=== PATIENT | female | born 1980 | race Caucasian/White ===

== ENCOUNTER 2022-04-22 06:31 | Emergency (ER) | payer OTHER ==
[2022-04-22 07:30] LABS: BASOPHIL 0.3 % (0-2); EOSINOPHIL 0.1 % (0-5); HCT 39.4 % (37.0-47.0); HGB 12.2 g/dl (12.5-16.0); LYMPHOCYTE 4.1 % (15-48); MCH 27.5 pg (25.0-31.0); MCV 88.7 fL (78.0-100.0); MONOCYTE 3.1 % (0-12); MPV 9.7 fL (6.0-9.5); NEUTROPHIL 91.5 % (41-80); NRBC 0.1; PLT 325 K/uL (150-400); RBC 4.44 M/uL (4.20-5.40); RDW 15.1 % (11.5-14.0)
[2022-04-22 07:57] LABS: LACTIC ACID 2.2 mmol/L (0.4-1.9)
[2022-04-22 09:23] LABS: BILIRUBIN NEGATIVE (NEGATIVE); BLOOD 3+ Ery/uL (NEGATIVE); CLARITY CLEAR (CLEAR); COLOR YELLOW (YELLOW); GLUCOSE (U) 3+ mg/dL (NORMAL); LEUKOCYTES NEGATIVE Leu/uL (NEGATIVE); NITRITE NEGATIVE (NEGATIVE); PROTEIN 1+ mg/dL (NEGATIVE); UROBILINOGEN 0.2 mg/dL (0.2-1.0); pH 5.5 (5.0-9.0)
[2022-04-22 09:29] LABS: AMPHETAMINES NEGATIVE (NEGATIVE); BARBITURATES NEGATIVE (NEGATIVE); ECSTASY (MDMA) NEGATIVE (NEGATIVE); MARIJUANA (THC) NEGATIVE (NEGATIVE); METHADONE NEGATIVE (NEGATIVE); OPIATES POSITIVE (NEGATIVE); OXYCODONE NEGATIVE (NEGATIVE)
[2022-04-22 09:46] LABS: CREATININE 1.09 mg/dL (0.51-0.95); POTASSIUM 5.4 mmol/L (3.5-5.1)
[2022-04-22 09:47] LABS: ALBUMIN 3.1 g/dL (3.4-5.0); BILIRUBIN - TOTAL 0.5 mg/dL (0.2-1.0); GLOBULIN (CALCULATION) 2.9 g/dL
[2022-04-22 09:48] LABS: MAGNESIUM 1.9 mg/dL (1.8-2.4)
[2022-04-22 09:51] LABS: ACETAMINOPHEN (TYLENOL) 5.6 ug/mL (10.0-30.0)
[2022-04-22 11:08] LABS: CORONAVIRUS 2019 SARS-COV-2 NEGATIVE (NEGATIVE); INFLUENZA A NAA NEGATIVE (NEGATIVE)
[2022-04-22 11:37] LABS: BUN/CREAT RATIO (CALC) 60.8 RATIO; CREATININE 0.79 mg/dL (0.51-0.95); POTASSIUM 3.9 mmol/L (3.5-5.1)
[2022-04-22 14:33] LABS: CREATININE 0.8 mg/dL (0.51-0.95); POTASSIUM 4.1 mmol/L (3.5-5.1)
[2022-04-22 16:49] LABS: BUN/CREAT RATIO (CALC) 61.8 RATIO; CREATININE 0.76 mg/dL (0.51-0.95); POTASSIUM 4.1 mmol/L (3.5-5.1)
== END 2022-04-22 16:50 | disposition other institution (70) ==
LOC: FER 06:31
PROVIDERS: Emergency Medicine
DX: E10.10 Type 1 diabetes mellitus with ketoacidosis without coma (principal); A41.9 Sepsis, unspecified organism; R65.21 Severe sepsis with septic shock; R00.0 Tachycardia, unspecified; Z20.822 Contact with and (suspected) exposure to COVID-19; Z88.1 Allergy status to other antibiotic agents; Z88.2 Allergy status to sulfonamides; Z94.0 Kidney transplant status
CPT/HCPCS: 36415; 36600; 70450; 71045; 80048; 80053; 80305; 81001; 82009; 82803; 83605; 83690; 83735; 84132; 84145; 85025; 87040; 87088; 93005; G0480; J2060; J2543; J3370; J3480; J7030; J7050; U0002